=== PATIENT | female | born 1990 | race Caucasian/White ===

== ENCOUNTER 2018-01-23 01:40 | Emergency (ER) | payer OTHER ==
[~2018-01-23] VITALS: Ht 165.1 cm; Wt 52.3 kg
[2018-01-23 01:47] VITALS: Ht 165.1 cm; Wt 52.3 kg
[2018-01-23] MEDS ORDERED: CIPRO500 MG PO (01:50)
[2018-01-23] MEDS ORDERED: FLAGYL500 MG (01:50)
[2018-01-23] MEDS ORDERED: ZOLOFT100 MG PO (01:51)
[2018-01-23] MEDS ORDERED: BUSPAR10 MG PO (01:51)
[2018-01-23 02:23] LABS: HEMATOCRIT 37.5 % (36.0-48.0); HEMOGLOBIN 13.5 g/dL (12-16); LYMPHOCYTES 15.5 % (15-50); MCV 83.3 fL (80.0-100.0); MEAN PLATELET VOLUME 8.9 fL (7.4-10.4); NEUTROPHILS 76.9 % (40-80); PLATELET COUNT 320 10x3/uL (130-400); RDW 13.3 % (11.5-14.5); WBC 10.3 10x3/uL (4.8-10.8)
[2018-01-23] MEDS ORDERED: ULTRACET TABLET1 TAB PO (02:40)
[2018-01-23 02:47] LABS: ALBUMIN 4.9 g/dL (3.4-5.0); ALKALINE PHOSPHATASE 41 U/L (46-116); ALT (SGPT) 19 U/L (10-68); BILIRUBIN - TOTAL 0.33 mg/dL (0.2-1.3); CALC OSMOLALITY 277 mosm/kg (275-300); CALCIUM 9.1 mg/dL (8.5-10.1); CARBON DIOXIDE 26.2 mmol/L (21.0-32.0); CHLORIDE - SERUM 103 mmol/L (98-107); CREATININE - SERUM 0.7 mg/dL (0.6-1.3); GLUCOSE 105 mg/dL (74-106); LIPASE 284 U/L (73-393); POTASSIUM - SERUM 3.6 mmol/L (3.5-5.1); SODIUM 139 mmol/L (136-145); UREA NITROGEN 12 mg/dL (7-18); eGFR NON AFRICAN AMERICAN > 90 mL/min (90-120)
[2018-01-23 03:29] VITALS: BP 98/69
== END 2018-01-23 03:30 | disposition home or self-care (01) ==
LOC: D.ER 01:40
PROVIDERS: Emergency Medicine
DX: R10.9 Unspecified abdominal pain (principal); R19.7 Diarrhea, unspecified

== ENCOUNTER 2019-07-02 12:46 | Emergency (ER) | payer OTHER ==
[~2019-07-02] VITALS: Ht 165.1 cm; Wt 68.2 kg
[~2019-07-02 12:46] MED LIST: BUSPAR10 MG PO; CIPRO500 MG PO; FLAGYL500 MG; ULTRACET TABLET1 TAB PO; ZOLOFT100 MG PO
[2019-07-02 12:51] VITALS: Ht 165.1 cm; Wt 68.2 kg
[2019-07-02] MEDS ORDERED: ZONISAMIDE50 MG PO (12:54)
[2019-07-02] MEDS ORDERED: MINIPRESS2 MG PO (12:56)
[2019-07-02] MEDS ORDERED: LEXAPRO10 MG PO (12:56)
[2019-07-02] MEDS ORDERED: SEROQUEL50 MG PO (12:56)
[2019-07-02 14:14] LABS: CALC OSMOLALITY 284 mosm/kg (275-300); CALCIUM 8.8 mg/dL (8.5-10.1); CARBON DIOXIDE 29.4 mmol/L (21.0-32.0); CHLORIDE - SERUM 106 mmol/L (98-107); CREATININE - SERUM 0.7 mg/dL (0.6-1.3); GLUCOSE 122 mg/dL (74-106); POTASSIUM - SERUM 3.8 mmol/L (3.5-5.1); SODIUM 143 mmol/L (136-145); UREA NITROGEN 9 mg/dL (7-18); eGFR NON AFRICAN AMERICAN > 90 mL/min (90-120)
[2019-07-02 14:17] LABS: BASOPHILS 0.8 % (0-2); EOSINOPHILS 4.1 % (0-7); HEMATOCRIT 36.4 % (36.0-48.0); HEMOGLOBIN 12.3 g/dL (12-16); IMMATURE GRANULOCYTES 0.2 % (0-5); LYMPHOCYTES 31.1 % (15-50); MCH 30.6 pg (26.0-34.0); MCHC 33.8 g/dL (31.0-37.0); MCV 90.5 fL (80.0-100.0); MEAN PLATELET VOLUME 9.1 fL (7.4-10.4); MONOCYTES 8.2 % (2-11); NEUTROPHILS 55.6 % (40-80); PLATELET COUNT 338 10x3/uL (130-400); RBC 4.02 10x6/uL (4.00-5.40); RDW 12.3 % (11.5-14.5); WBC 5.1 10x3/uL (4.8-10.8)
[2019-07-02 14:20] LABS: ALBUMIN 3.5 g/dL (3.4-5.0); ALKALINE PHOSPHATASE 58 U/L (46-116); ALT (SGPT) 25 U/L (10-68); BILIRUBIN - TOTAL 0.12 mg/dL (0.2-1.3); PROTEIN - SERUM 6.9 g/dL (6.4-8.2)
[2019-07-02 14:25] LABS: APPEARANCE HAZY (CLEAR); BILIRUBIN NEGATIVE (NEGATIVE); COLOR STRAW (YELLOW); GLUCOSE NEGATIVE (NEGATIVE); KETONE NEGATIVE (NEGATIVE); NITRITE NEGATIVE (NEGATIVE); PROTEIN NEGATIVE (NEGATIVE); SPECIFIC GRAVITY 1.015 (1.005-1.020); UROBILINOGEN NORMAL (NORMAL)
[2019-07-02 14:26] LABS: BACTERIA FEW /hpf (NEGATIVE); EPITHELIAL CELLS 0-5 /hpf (0-5); WHITE CELLS - URINE 0-5 /hpf (NEGATIVE)
[2019-07-02 16:07] LABS: HCG SERUM NEGATIVE (NEGATIVE)
[2019-07-02 16:11] LABS: UDS - AMPHET NEGATIVE QUAL (NEGATIVE); UDS - BARB NEGATIVE QUAL (NEGATIVE); UDS - BENZO POSITIVE QUAL (NEGATIVE); UDS - COCAINE NEGATIVE QUAL (NEGATIVE); UDS - OPIATE NEGATIVE QUAL (NEGATIVE); UDS - PCP NEGATIVE QUAL (NEGATIVE); UDS - THC POSITIVE QUAL (NEGATIVE)
[2019-07-02 17:41] VITALS: BP 118/74
== END 2019-07-02 17:42 | disposition home or self-care (01) ==
LOC: D.ER 12:46
PROVIDERS: Emergency Medicine
DX: G40.209 Localization-related (focal) (partial) symptomatic epilepsy and epileptic syndromes with complex partial seizures, not intractable, without status epilepticus (principal)